=== PATIENT | female | born 1960 | race Caucasian/White ===

== ENCOUNTER → 2021-04-10 08:16 | Outpatient (CLI) | payer OTHER, SELFPAY ==
--- NOTE | ~2021-04-10 | CT_ITS ---
EXAMINATION: CT pelvis wo/w con INDICATION: Pelvic pain and cramping, left lower quadrant mass TECHNIQUE: Computed tomographic images of the pelvis were obtained prior to and following the adminis tration of 100 cc of Omnipaque 350 intravenous contrast. The dose-length product (DLP) was 955.97 mGy -cm. Automated exposure control and iterative reconstruction technique were employed. COMPARISON: None FINDINGS: There are changes of hysterectomy. No pathologically enlarged pelvic lymph nodes are identi fied. Colonic diverticulosis is present without evidence of diverticulitis. No abnormal enhancement i s present after contrast administration. No pelvic mass is identified. There is a small left inguinal hernia containing fat. There is mild osteoarthritis of the hips. Moderate lumbar spondylosis is note d at L5-S1. IMPRESSION: 1. No CT correlate for the patient's symptoms. No left lower quadrant mass identified. Reviewed, dictated and finalized at location A. RTS ANALYST IMPRESSION: 1. No CT correlate for the patient's symptoms. No left lower quadrant mass iden tified.
[2021-04-10 08:36] LABS: Estimated Glomerular Filt Rate > 60
== END ==
PROVIDERS: PCP Internal Medicine; Visit Provider Advanced Practice Midwife
DX: R10.2 Pelvic and perineal pain (principal); R19.04 Left lower quadrant abdominal swelling, mass and lump
CPT/HCPCS: 72194; Q9967